=== PATIENT | male | born 1995 | race Caucasian/White ===

== ENCOUNTER 2021-04-19 11:04 | Emergency (ER) | payer OTHER ==
--- NOTE | 2021-04-19 11:52 | EDM.PDOC ---
ED HPI GENERAL MEDICAL PROBLEM - General Chief Complaint: Laceration Stated Complaint: LACERATION TO WRIST Time Seen by Provider: 04/19/21 11:47 Source of Information: Reports: Patient, RN Notes Reviewed History Limitations: Reports: No Limitations - History of Present Illness INITIAL COMMENTS - FREE TEXT/NARRATIVE: 26-year-old gentleman presents emergency department day with a laceration to his left hand he injured himself while he was at work he moving a sheet piece of sheet metal the sheet metal cut through all 4 digits on the palmar surface he has difficulty closing digit #3 and there is numbness and tingling distal tip digit #3 Left Finger-Middle Pain Score (Numeric/FACES): 5 - Related Data Allergies Allergy/AdvReac Type Severity Reaction Status Date / Time No Known Allergies Allergy Verified 04/19/21 11:17 Home Meds: Home Meds NK [No Known Home Meds] 04/19/21 [History] Past Medical History - Past Surgical History Musculoskeletal Surgical History: Reports: Arthroscopic Knee, Other (See Below) Other Musculoskeletal Surgeries/Procedures:: hamstring graft, ankle repair Social & Family History - Tobacco Use Tobacco Use Status *Q: Former Tobacco User Used Tobacco, but Quit: Yes Month/Year Tobacco Last Used: 03/2021 - Caffeine Use Caffeine Use: Reports: Tea - Recreational Drug Use Recreational Drug Use: Yes Recreational Drug Type: Reports: Marijuana/Hashish Recreational Drug Use Frequency: Socially ED ROS GENERAL - Review of Systems Review Of Systems: See Below Constitutional: Reports: No Symptoms Musculoskeletal: Reports: Hand Pain Skin: Reports: Wound Neurological: Reports: Numbness, Tingling ED EXAM, SKIN/RASH Exam: See Below Text/Narrative:: Examination left hand he has full range of motion of digits however he cannot when he closes his fist he cannot get the distal phalanges to completely close on digit #2 radial pulses +2 he does complain of numbness and tingling distal tip of digit #2 lacerations are approximately 2 cm across each palmar surface of the digit digit #1 distal tip digit #2 right across the DIP joint digit #3 just beneath the DIP joint and digit #4 again 2 cm on the distal pad ED SKIN PROCEDURES - Additional/Other Procedure(s) Other (Free Text) Procedure(s): Preoperative diagnosis multiple lacerations digits 2 through 4 with disruption of flexor digitorum profundus digit #3 as well as digital nerve disruption Postoperative diagnosis status post repair Surgeon Kel OfficerMD Verbal consent was obtained prior to procedure risks and benefits were discussed patient is in agreement and wishes to proceed. Anesthesia hand block was performed by anesthesia please see their notes for details Estimated blood loss 200 cc Specimens none Summary procedure: Timeout was performed prior to initiation procedure identified correct site, correct patient and correct procedure. After adequate anesthesia each digit has about a 2 cm laceration 4 stitches placed in digit #2, 5 stitches placed digit #3, 4 stitches placed digit #4 3 stitches placed digit #5 were placed in each digit no attempt to repair the tendon was done this is referred to hand surgery which will be done later this week. Prior to repair copious amounts of water were used to cleanse the wound, tetanus was updated today. A fiberglass splint was custom fit about 20 degrees flexion of the wrist 20 degrees flexion of the hand placed on the dorsal surface of the hand Complications none apparent Disposition he will follow up with hand surgery this week on Placed in a home Course - Vital Signs Last Recorded V/S: Last Vital Signs Temp 97.7 F 04/19/21 11:15 Pulse 91 04/19/21 11:15 Resp 20 04/19/21 11:15 BP 137/91 H 04/19/21 11:15 Pulse Ox 100 04/19/21 11:15 Departure - Departure Time of Disposition: 13:17 Disposition: Home, Self-Care 01 Condition: Fair Clinical Impression: Laceration of hand, left Qualifiers: Encounter type: initial encounter Foreign body presence: without foreign body Qualified Code(s): S61.412A - Laceration without foreign body of left hand, initial encounter - Discharge Information Instructions: Laceration Care, Adult Referrals: PCP,Unknown [Primary Care Provider] - Forms: ED Department Discharge Additional Instructions: If you do not hear from [facility] today please call [facility] tomorrow morning in [place] you are to follow-up with Dr. Maravilla from orthopedics he is a hand surgeon plan for [place] on of this week Sepsis Event Note (ED) - Evaluation Sepsis Screening Result: No Definite Risk - Focused Exam Vital Signs: Vital Signs Temp Pulse Resp BP Pulse Ox 04/19/21 11:15 97.7 F 91 20 137/91 H 100 04/19/21 11:08 97.7 F 91 20 137/91 H 100 - Assessment/Plan Plan: Assessment Acuity = acute Site and laterality = multiple finger lacerations digits 2 through 5 with disruption of flexor digitorum profundus digit #3 Etiology = trauma with sheet metal Manifestations = loss of distal aspect of digit #3 functionality Location of injury = work Lab values = none Plan Called discussed case Dr. Maravilla hand surgeon on-call [facility] he will be in clinic in [place] of which she will see him for reevaluation and probable repair of this tendon on of this week in the meantime he is placed in a splint with repair of the wounds This note was dictated using [employer] voice recognition software please call with any questions on syntax or grammar.
[2021-04-19] MEDS ORDERED: Bacitracin Oint 1 GM U/D Packet TOP ONE ×2 (13:23)
[2021-04-19] MEDS ORDERED: Bupivacaine 0.5% 30 ML SDV ONE (13:23)
--- NOTE | 2021-04-19 14:40 | ANES ---
DATE OF SERVICE: 04/19/2021 HISTORY OF PRESENT ILLNESS: I was talked to early this afternoon by Dr. Foss in the ER regarding a patient who severely lacerated 4 fingers on his left hand. He is wanting to fix lacerations, but did not want to do a digit block on all 4 fingers, so he asked that I come over and do a wrist block on the patient. Went over to the ER, discussed a brief history and physical with the patient. The patient is healthy, does not have any allergies. Risks and benefits regarding the wrist block were reviewed with the patient. The patient verbalizes understanding, wishes to proceed with the wrist block at this time. TECHNIQUE: Chlorhexidine was used to clean his left wrist area. 0.5% Sensorcaine was the local anesthetic that I used today. After chlorhexidine was dry, I then proceeded to put on sterile gloves and proceeded with a median nerve block. For that block, I went about 0.5- inch below the wrist in between the 2 tendons and injected 5 mL of 0.5% Sensorcaine in that area. I then went over to the radial side, felt his radial pulse, went lateral to that and did a big fan block across that area for a total of about 7 mL of 0.5% Sensorcaine into that area. I then went over to the ulnar, felt the ulnar tendon and went lateral to that and put 5 mL fan block around his ulnar nerve, 5 mL of 0.5% Sensorcaine. After doing all that, waited several minutes to see how things were setting up. He had good pain relief in his thumb, his index finger, and his middle finger, a little bit in his ring finger and not much in his pinky, so I decided to inject a little bit more around that ulnar nerve. Again, I went lateral to the tendon on that side, injected a little deeper this time and did a fan block across the top towards the middle of his wrist. I did an additional 5 mL of 0.5% Sensorcaine. By Dr. Foss's note, it might take about 10, 15, 20 minutes for that to set up and then he would be able to suture. I said I would be available if he had any questions regarding it. The patient tolerated the procedure without difficulty. Please refer to the nurse's notes for vital signs. Clayton Weller CRNA /[id number]
== END 2021-04-19 13:59 | disposition home or self-care (01) ==
LOC: JP.ED 11:04
DX: S61.412A Laceration without foreign body of left hand, initial encounter (principal); Z87.891 Personal history of nicotine dependence; W26.8XXA Contact with other sharp object(s), not elsewhere classified, initial encounter; Y99.0 Civilian activity done for income or pay
CPT/HCPCS: 12001; 99282; J3490

== ENCOUNTER 2024-10-02 17:32 | Emergency (ER) | payer OTHER ==
[2024-10-02] MEDS: Diphtheria,Pertussis(Acell),Tetanus Vaccine 0.5 ML Syringe IM ONE (18:14)
[2024-10-02] MEDS: Lidocaine 1% 10 ML MDV INJECT ONE (18:15)
[2024-10-02] MEDS: Bacitracin Oint 1 GM U/D Packet TOP ONE (18:37)
== END 2024-10-02 18:44 | disposition home or self-care (01) ==
LOC: JP.ED 17:32
DX: S61.213A Laceration without foreign body of left middle finger without damage to nail, initial encounter (principal); S61.215A Laceration without foreign body of left ring finger without damage to nail, initial encounter; Z23 Encounter for immunization; W31.2XXA Contact with powered woodworking and forming machines, initial encounter; Y93.89 Activity, other specified
CPT/HCPCS: 12001; 90471; 90715; 99283; J2003